=== PATIENT | female | born 1935 | race Caucasian/White ===

== ENCOUNTER 2024-02-08 11:11 | Inpatient (IN) | payer BC, MEDICARE, OTHER ==
[~2024-02-08] VITALS: Ht 149.9 cm; Wt 77.6 kg
[~2024-02-08 11:11] MED LIST: LEVO100C2 PO; LOSA50TA39 PO; MONT10TA22 PO; RABE20TA18 PO; SIMV10TA98 PO; WARF1TAB86 PO
[2024-02-08] MEDS ORDERED: ALEN70TA80 PO (11:55)
[2024-02-08] MEDS ORDERED: WARF-68 PO (11:55)
[2024-02-08] MEDS ORDERED: CETI-90 PO (11:55)
[2024-02-08] MEDS ORDERED: FAMO20TA80 PO (11:55)
[2024-02-08] MEDS ORDERED: UBID30CA11 PO (11:55)
[2024-02-08] MEDS ORDERED: ASPI-1169 PO (11:55)
[2024-02-08] MEDS ORDERED: FERR324T4 PO (11:55)
[2024-02-08] MEDS ORDERED: LEVO25TA7 PO (11:55)
[2024-02-08 14:11] LABS: BASOPHILS # (AUTO) 0.1 K/uL (0.0-0.2); BASOPHILS % (AUTO) 0.8 % (0.0-2.0); EOSINOPHILS % (AUTO) 0.1 % (0.0-6.0); HEMATOCRIT 32 % (33-45); HEMOGLOBIN 10.6 g/dL (11.5-14.8); LYMPHOCYTES # (AUTO) 1.5 K/uL (0.8-4.8); LYMPHOCYTES % (AUTO) 23.7 % (20.0-44.0); MEAN CORPUSCULAR HEMOGLOBIN 31 PG (26.0-33.0); MEAN CORPUSCULAR HGB CONC 33 g/dl (31.0-36.0); MEAN CORPUSCULAR VOLUME 92 fL (82-100); MONOCYTES # (AUTO) 0.8 K/uL (0.1-1.30); MONOCYTES % (AUTO) 12.4 % (2.0-12.0); NEUTROPHILS # (AUTO) 4.1 K/uL (1.8-8.9); PLATELET COUNT (AUTO) 262 K/uL (150-450); RED BLOOD CELL COUNT(AUTO) 3.46 MIL/uL (4.0-5.2); RED CELL DISTRIBUTION WIDTH 14.6 % (11.5-15.0); WHITE BLOOD COUNT (AUTO) 6.5 K/uL (4.3-11.0)
[2024-02-08 14:21] LABS: INR 2.68 (0.91-1.10); PARTIAL THROMBOPLASTIN TIME 42.7 SEC (24.3-34.3); PROTHROMBIN TIME 26.6 SECS (9.2-11.1)
[2024-02-08 14:30] LABS: SERUM AMMONIA 10 umol/L (11-32)
[2024-02-08 14:37] LABS: ALANINE AMINOTRANSFERASE 14 U/L (12-78); ALBUMIN 3.2 g/dL (3.4-5.0); ALCOHOL, BLOOD < 3 mg/dL (0-10); ALKALINE PHOSPHATASE 71 U/L (46-116); ASPARTATE AMINOTRANSFERASE 21 U/L (15-37); BILIRUBIN,DIRECT 0.1 mg/dL (0.0-0.2); BILIRUBIN,TOTAL 0.4 mg/dL (0.2-1.0); CALCIUM, SERUM 9.4 mg/dL (8.5-10.1); CARBON DIOXIDE 25 mmol/L (21-32); CHLORIDE 106 mmol/L (98-107); CREATININE 1.8 mg/dL (0.6-1.3); GLUCOSE 93 mg/dL (74-106); POTASSIUM 4.4 mmol/L (3.5-5.1); SODIUM SERUM 139 mmol/L (136-145); TOTAL PROTEIN, SERUM 6.6 g/dL (6.4-8.2); UREA NITROGEN, BLOOD 28 mg/dL (7-18)
[2024-02-08 14:43] LABS: AMPHETAMINE, URINE NEGATIVE (NEGATIVE); BARBITURATE, URINE NEGATIVE (NEGATIVE); BENZODIAZEPINE, URINE NEGATIVE (NEGATIVE); CANNABINOID, URINE NEGATIVE (NEGATIVE); COCCAINE, URINE NEGATIVE (NEGATIVE); PHENCYCLIDINE SCREEN,URINE NEGATIVE (NEGATIVE)
[2024-02-08 15:18] LABS: OPIATE, URINE POSITIVE (NEGATIVE); SALICYLATE 0.7 mg/dL (2.8-20.0)
[2024-02-08 15:20] LABS: ACETAMINOPHEN <10 ug/ml (10-30)
[2024-02-08 15:31] LABS: APPEARANCE,URINE CLEAR (CLEAR); BILIRUBIN,URINE NEGATIVE (NEGATIVE); BLOOD, URINE TRACE-INTA Ery/uL (NEGATIVE); COLOR,URINE YELLOW (YELLOW); KETONES,URINE NEGATIVE (NEGATIVE); LEUKOCYTE ESTERASE ,URINE NEGATIVE (NEGATIVE); NITRITE, URINE NEGATIVE (NEGATIVE); PH,URINE 5.5 (5.0-8.0); PROTEIN,URINE 1+ mg/dl (NEGATIVE); UGLUCOSE NEGATIVE (NEGATIVE); UROBILINOGEN,URINE 0.2 EU/dL (0.2)
[2024-02-08 16:00] LABS: ADD URINE CULTURE NO; BACTERIA,URINE None seen /HPF (None Seen); FINE GRANULAR CASTS,URINE RARE /LPF (None Seen); MUCUS,URINE Few /LPF (None Seen); SQUAMOUS EPITHELIAL CELL,UR 0-2 /HPF (None Seen); WBC,URINE 0-2 /HPF (0-3)
[2024-02-08] MEDS ORDERED: MAGNESIUM HYDROXIDE 30 ML UDC PO PRN (16:30)
[2024-02-08] MEDS ORDERED: Z GUARD REMEDY 4 OZ OINT TP PRN (16:30)
[2024-02-08] MEDS ORDERED: ONDANSETRON HCL/PF 4 MG/2 ML VIAL IVP PRN (16:30)
[2024-02-08 17:33] LABS: THYROID STIMULATING HORMONE 1.7 uIU/mL (0.358-3.74)
[2024-02-08] MEDS: WARFARIN SODIUM 2 MG TABLET PO SCH (18:29)
[2024-02-08] MEDS: IV 1/2NS 1000 ML 1,000 ML IV PRN (18:35)
[2024-02-08] MEDS: ACETAMINOPHEN 325 MG TABLET PO PRN (18:44)
[2024-02-08 20:00] VITALS: BP 151/95; TEMP 98.1; O2SAT 96
[2024-02-09] VITALS (8 sets, daily range): BP systolic 102–185; BP diastolic 52–108; TEMP 97.5–98.6; O2SAT 96–100
[2024-02-09] MEDS: CLONIDINE HCL 0.1 MG TABLET PO PRN (06:25)
[2024-02-09 07:03] LABS: BASOPHILS % (AUTO) 0.5 % (0.0-2.0); EOSINOPHILS % (AUTO) 0.2 % (0.0-6.0); HEMATOCRIT 32 % (33-45); HEMOGLOBIN 10.8 g/dL (11.5-14.8); LYMPHOCYTES # (AUTO) 2.3 K/uL (0.8-4.8); LYMPHOCYTES % (AUTO) 33.7 % (20.0-44.0); MEAN CORPUSCULAR HEMOGLOBIN 31 PG (26.0-33.0); MEAN CORPUSCULAR HGB CONC 33 g/dl (31.0-36.0); MEAN CORPUSCULAR VOLUME 92 fL (82-100); MONOCYTES % (AUTO) 14.7 % (2.0-12.0); NEUTROPHILS # (AUTO) 3.4 K/uL (1.8-8.9); NEUTROPHILS % (AUTO) 50.9 % (43.0-81.0); PLATELET COUNT (AUTO) 261 K/uL (150-450); RED BLOOD CELL COUNT(AUTO) 3.53 MIL/uL (4.0-5.2); RED CELL DISTRIBUTION WIDTH 14.8 % (11.5-15.0); WHITE BLOOD COUNT (AUTO) 6.7 K/uL (4.3-11.0)
[2024-02-09 07:32] LABS: CREATININE 1.8 mg/dL (0.6-1.3); MAGNESIUM 1.9 mg/dL (1.8-2.4); PHOSPHORUS 3.3 mg/dL (2.5-4.9); POTASSIUM 4.3 mmol/L (3.5-5.1)
[2024-02-09] MEDS: FERROUS SULFATE (325 MG) 325 MG/TAB TABLET PO SCH (09:01)
[2024-02-09] MEDS: LEVOTHYROXINE SODIUM 25 MCG TABLET PO SCH (09:01)
[2024-02-09] MEDS: cetrizine 10 MG TABLET PO SCH (09:01)
[2024-02-09] MEDS: SIMVASTATIN 10 MG TABLET PO SCH (09:01)
[2024-02-09] MEDS: ASPIRIN 81 MG TAB.CHEW PO SCH (09:02)
[2024-02-09] MEDS: FAMOTIDINE (20 MG) 20 MG TABLET PO SCH (09:02)
[2024-02-09 11:37] LABS: THYROID STIMULATING HORMONE 1.82 uIU/mL (0.358-3.74)
[2024-02-09] MEDS: IV NS 0.9% 1,000 ML BAG IV PRN (16:56)
[2024-02-09 18:21] LABS: INR 2.67 (0.91-1.10); PROTHROMBIN TIME 26.5 SECS (9.2-11.1)
[2024-02-09] MEDS: WARFARIN SODIUM 1 MG TABLET PO SCH (18:34)
[2024-02-10 00:08] VITALS: BP 157/82; TEMP 97.7; O2SAT 96
[2024-02-10 04:00] VITALS: BP 129/83; TEMP 98.1; O2SAT 97
[2024-02-10 08:35] VITALS: BP 156/88; TEMP 97.5; O2SAT 97
[2024-02-10 12:15] VITALS: BP 154/76; TEMP 97.8; O2SAT 98
[2024-02-10 16:17] VITALS: BP 144/96; TEMP 97.8; O2SAT 95
[2024-02-10 19:26] LABS: INR 2.43 (0.91-1.10); PROTHROMBIN TIME 24.3 SECS (9.2-11.1)
[2024-02-10 20:00] VITALS: BP 150/80; TEMP 97.7; O2SAT 96
[2024-02-11] VITALS (7 sets, daily range): BP systolic 137–170; BP diastolic 66–90; TEMP 97.5–99.5; O2SAT 95–97
[2024-02-11 01:08] LABS: FOLIC ACID 11.6 ng/mL (>3.0)
[2024-02-11 17:39] LABS: INR 2.58 (0.91-1.10); PROTHROMBIN TIME 25.7 SECS (9.2-11.1)
[2024-02-11] MEDS: ENSURE ENLIVE 237 ML LIQUID (VANILLA) PO SCH (17:59)
[2024-02-12] VITALS (7 sets, daily range): BP systolic 108–144; BP diastolic 66–108; TEMP 98–98.4; O2SAT 95–98
[2024-02-12] MEDS: QUETIAPINE FUMARATE 25 MG TABLET PO ONE (00:53)
[2024-02-12] MEDS: LORAZEPAM 1 MG TABLET PO ONE (15:42)
[2024-02-12 18:28] LABS: INR 5.33 (0.91-1.10); PROTHROMBIN TIME 50.6 SECS (9.2-11.1)
[2024-02-13] MEDS: MAG HYDROX/AL HYDROX/SIMETH 30 ML UDC PO PRN (06:05)
[2024-02-13 07:30] VITALS: BP 189/72; TEMP 98.4; O2SAT 100
[2024-02-13] MEDS: LORAZEPAM 1 MG TABLET PO PRN (10:29)
[2024-02-13 14:15] VITALS: BP 115/62; O2SAT 98
[2024-02-13] MEDS ORDERED: LORAZEPAM 1 MG TABLET PO PRN ×2 (18:00→20:00)
== END 2024-02-13 14:20 | disposition home health service (06) | DRG 683 ==
LOC: ER 11:34 → TELE 14:25 → MED 02-12 10:19
DX: N17.9 Acute kidney failure, unspecified (principal); D68.59 Other primary thrombophilia; J98.11 Atelectasis; I48.0 Paroxysmal atrial fibrillation; F03.90 Unspecified dementia, unspecified severity, without behavioral disturbance, psychotic disturbance, mood disturbance, and anxiety; E78.5 Hyperlipidemia, unspecified; E03.9 Hypothyroidism, unspecified; Z86.73 Personal history of transient ischemic attack (TIA), and cerebral infarction without residual deficits; Z87.19 Personal history of other diseases of the digestive system; K44.9 Diaphragmatic hernia without obstruction or gangrene; Z79.890 Hormone replacement therapy; Z79.83 Long term (current) use of bisphosphonates; Z79.82 Long term (current) use of aspirin; Z79.01 Long term (current) use of anticoagulants; I12.9 Hypertensive chronic kidney disease with stage 1 through stage 4 chronic kidney disease, or unspecified chronic kidney disease; N18.9 Chronic kidney disease, unspecified; E88.09 Other disorders of plasma-protein metabolism, not elsewhere classified; D64.9 Anemia, unspecified; Z79.899 Other long term (current) drug therapy; Z87.81 Personal history of (healed) traumatic fracture; Z91.81 History of falling; I95.1 Orthostatic hypotension
CPT/HCPCS: 36415; 70450-TC; 70551-TC; 71045-TC; 80048-TC; 80061-TC; 80076-TC; 81001; 82140-TC; 82607-TC; 82962-TC; 83735-TC; 83921; 84100-TC; 84425; 84443-TC; 85025-TC; 85610-TC; 85730-TC; 93307-TC; 97110-TC; 97116-TC; 97530-TC; A4223; A6253; G0378; G0480; J3490; J7030